=== PATIENT | male | born 1950 | race Caucasian/White ===

== ENCOUNTER 2016-06-15 22:27 | Inpatient (IN) | payer MEDICARE, OTHER ==
[~2016-06-15] VITALS: Ht 297.2 cm; Wt 112.8 kg
[~2016-06-15 22:27] MED LIST: AMIO200T33 PO; ASPI-264 PO; FER325T PO; FUR40T PO; GLIP-115 PO; LEVOPOW43 PO; METO-158 PO; POT20T PO; SIMV-8 PO; TIOTCAP INH; ZOLP10TA PO
[2016-06-15] MEDS ORDERED: DEXTROSE (50%) 50ML SYRG IV ONE (23:30)
[2016-06-15 23:52] LABS: Basophils # (auto) 0.1 uL; Basophils % (auto) 2.1 % (0.0-2.0); Eosinophils # (auto) 0.1 uL; Hematocrit 36.5 % (41.0-53.0); Hemoglobin 11.7 g/dL (13.5-17.5); Lymphocytes # (auto) 0.4 uL; Mean Corpuscular Hemoglobin 30.2 pg (28.0-32.0); Mean Corpuscular Hgb Conc. 32.2 g/dL (32.0-36.0); Mean Corpuscular Volume 93.9 fL (80.0-100.0); Mean Platelet Volume 7.3 fL (7.4-10.4); Monocytes # (auto) 0.4 uL; Monocytes % (auto) 5.8 % (0.0-12.0); Neutrophils # (auto) 5.3 uL; Neutrophils % (auto) 84.1 % (37.0-80.0); Platelet Count (auto) 204 10^3/uL (140-450); Red Cell Distribution Width 12.9 % (11.6-16.0); SUSPECT VIEW TRANSMISSION; White Blood Cell 6.3 10^3/uL (4.4-10.8)
[2016-06-16] VITALS (11 sets, daily range): BP systolic 121–150; BP diastolic 70–98
[2016-06-16 00:17] LABS: BUN/Creatinine Ratio 10.7; Bilirubin, Total 0.8 mg/dL (0.2-1.0); Calcium 8.1 mg/dL (8.5-10.1); Potassium 3.3 mmol/L (3.5-5.1); Total Protein 7.5 g/dL (6.4-8.2)
[2016-06-16 00:18] LABS: Albumin 3.3 g/dL (3.4-5.0)
[2016-06-16] MEDS ORDERED: DEXTROSE 10% 1,000 ML IV ONE (00:45)
[2016-06-16] MEDS ORDERED: ALBUTEROL SULF 2.5 MG/0.5ML(0.5%) NEB SOLN NEB ONE (01:45)
[2016-06-16] MEDS ORDERED: IPRATROPIUM BROM 0.5 MG/2.5ML INH SOL NEB ONE (01:45)
[2016-06-16] MEDS ORDERED: methylPREDNISolone SOD SUCC 125 MG/2 ML VL IV ONE (01:45)
[2016-06-16] MEDS ORDERED: DEXTROSE (50%) 50ML SYRG IV ONE ×3 (01:45→09:45)
[2016-06-16 03:18] LABS: Urine Bilirubin Negative (Negative); Urine Blood Negative /uL (Negative); Urine Color Yellow (Yellow); Urine Glucose Normal (Normal); Urine Ketone Negative (Negative); Urine Nitrite Negative (Negative); Urine RBC 1 /hpf (0 - 3); Urine Squamous Epithelial Cell FEW /hpf (<5); Urine Urobilinogen Normal (Negative); Urine pH 6.5 (5.0-8.0)
[2016-06-16] MEDS ORDERED: POTASSIUM CHL 20 Meq TABLET PO ONE (06:00)
[2016-06-16] MEDS ORDERED: NITROGLYCERIN 0.4 MG SL TAB SL PRN (07:45)
[2016-06-16] MEDS ORDERED: MORPHINE SULF INJ 2 MG/ML SYRINGE 1ML IV PRN (07:45)
[2016-06-16] MEDS ORDERED: LACTULOSE 20Gm/30ML SOLN PO PRN (07:45)
[2016-06-16] MEDS ORDERED: DEXTROSE (50%) 50ML SYRG IV PRN (07:45)
[2016-06-16] MEDS ORDERED: ZOLPIDEM TARTRATE 5 MG TAB PO PRN (07:45)
[2016-06-16] MEDS: DEXTROSE 10% 1,000 ML IV SCH ×2 (08:01→15:40)
[2016-06-16] MEDS: FUROSEMIDE 40 MG/4 ML VIAL IV SCH ×2 (08:05→18:00)
[2016-06-16] MEDS: FERROUS SULFATE 325 MG TAB PO SCH ×3 (08:06→18:00)
[2016-06-16] MEDS: LEVOTHYROXINE SODIUM 50 MCG TAB PO SCH (08:13)
[2016-06-16 08:57] LABS: Temperature: 21.4 C (20.0-25.0)
[2016-06-16] MEDS: IPRATROPIUM BROM 0.5 MG/2.5ML INH SOL NEB SCH ×4 (09:50→22:00)
[2016-06-16] MEDS: ALBUTEROL SULF 2.5 MG/0.5ML(0.5%) NEB SOLN NEB SCH ×4 (09:50→22:00)
[2016-06-16] MEDS: ASPirin 81 mg TAB PO SCH (10:00)
[2016-06-16] MEDS ORDERED: methylPREDNISolone SOD SUCC 125 MG/2 ML VL IV SCH (10:00)
[2016-06-16] MEDS: PANTOPRAZOLE SODIUM 40 MG/10 ML VIAL IV SCH (10:25)
[2016-06-16] MEDS: POTASSIUM CHL 20 Meq TABLET PO SCH (10:26)
[2016-06-16] MEDS: AMIODARONE HCL 200 MG TAB PO SCH (10:26)
[2016-06-16] MEDS: METOPROLOL TARTRATE 50 MG TAB PO SCH ×2 (10:27→21:48)
[2016-06-16] MEDS: ATORVASTATIN 20 MG TAB PO SCH (21:47)
[2016-06-16] MEDS: methylPREDNISolone SOD SUCC 125 MG/2 ML VL IV SCH (21:47)
[2016-06-17] MEDS: IPRATROPIUM BROM 0.5 MG/2.5ML INH SOL NEB SCH ×6 (02:00→22:20)
[2016-06-17] MEDS: ALBUTEROL SULF 2.5 MG/0.5ML(0.5%) NEB SOLN NEB SCH ×6 (02:00→22:21)
[2016-06-17] MEDS: DEXTROSE 10% 1,000 ML IV SCH ×3 (03:45→23:45)
[2016-06-17] MEDS: InsuLIN REG 1unit/0.01ml Soln (100units/ml) SC SCH ×7 (04:00→20:29)
[2016-06-17] MEDS: ACCU-CHEK COMFORT CURVE STRIP VI SCH ×6 (04:00→20:14)
[2016-06-17] MEDS: FUROSEMIDE 40 MG/4 ML VIAL IV SCH ×2 (05:36→18:09)
[2016-06-17 06:03] VITALS: BP 127/80
[2016-06-17 06:25] LABS: Basophils # (auto) 0 uL; Eosinophils # (auto) 0 uL; Hematocrit 38.1 % (41.0-53.0); Hemoglobin 12.1 g/dL (13.5-17.5); Lymphocytes # (auto) 0.2 uL; Lymphocytes % (auto) 3.3 % (10.0-50.0); Mean Corpuscular Hemoglobin 30.2 pg (28.0-32.0); Mean Corpuscular Hgb Conc. 31.9 g/dL (32.0-36.0); Mean Corpuscular Volume 94.7 fL (80.0-100.0); Mean Platelet Volume 8.3 fL (7.4-10.4); Monocytes # (auto) 0.1 uL; Monocytes % (auto) 1.5 % (0.0-12.0); Neutrophils # (auto) 7.2 uL; Neutrophils % (auto) 95.2 % (37.0-80.0); Platelet Count (auto) 235 10^3/uL (140-450); Red Cell Distribution Width 14.1 % (11.6-16.0); White Blood Cell 7.6 10^3/uL (4.4-10.8)
[2016-06-17 06:40] LABS: INR 1.12 (0.9-1.15); Prothrombin Time 11.5 sec (9.37-12.3)
[2016-06-17] MEDS: LEVOTHYROXINE SODIUM 50 MCG TAB PO SCH (06:40)
[2016-06-17 07:00] LABS: Albumin 3.4 g/dL (3.4-5.0); Bilirubin, Total 0.9 mg/dL (0.2-1.0); Potassium 4.2 mmol/L (3.5-5.1); Total Protein 7.6 g/dL (6.4-8.2)
[2016-06-17] MEDS: FERROUS SULFATE 325 MG TAB PO SCH ×3 (08:35→18:09)
[2016-06-17 09:21] VITALS: BP 165/74
[2016-06-17] MEDS: PANTOPRAZOLE SODIUM 40 MG/10 ML VIAL IV SCH (10:37)
[2016-06-17] MEDS: methylPREDNISolone SOD SUCC 125 MG/2 ML VL IV SCH ×2 (10:37→21:42)
[2016-06-17] MEDS: ASPirin 81 mg TAB PO SCH (10:37)
[2016-06-17] MEDS: POTASSIUM CHL 20 Meq TABLET PO SCH (10:37)
[2016-06-17] MEDS: AMIODARONE HCL 200 MG TAB PO SCH (10:38)
[2016-06-17] MEDS: METOPROLOL TARTRATE 50 MG TAB PO SCH ×2 (10:38→21:43)
[2016-06-17 12:49] VITALS: BP 123/81
[2016-06-17 17:39] VITALS: BP 114/75
[2016-06-17] MEDS: ATORVASTATIN 20 MG TAB PO SCH (21:43)
[2016-06-17 22:00] VITALS: BP 122/84
[2016-06-18] MEDS: ACCU-CHEK COMFORT CURVE STRIP VI SCH ×7 (00:03→23:59)
[2016-06-18] MEDS: InsuLIN REG 1unit/0.01ml Soln (100units/ml) SC SCH ×6 (00:06→20:28)
[2016-06-18] MEDS: ALBUTEROL SULF 2.5 MG/0.5ML(0.5%) NEB SOLN NEB SCH ×6 (02:30→22:10)
[2016-06-18] MEDS: IPRATROPIUM BROM 0.5 MG/2.5ML INH SOL NEB SCH ×6 (02:30→22:10)
[2016-06-18 05:00] VITALS: BP 120/80
[2016-06-18] MEDS: FUROSEMIDE 40 MG/4 ML VIAL IV SCH ×2 (06:22→17:49)
[2016-06-18] MEDS: LEVOTHYROXINE SODIUM 50 MCG TAB PO SCH (06:44)
[2016-06-18] MEDS: FERROUS SULFATE 325 MG TAB PO SCH ×3 (08:00→17:48)
[2016-06-18 09:00] VITALS: BP 120/81
[2016-06-18] MEDS: methylPREDNISolone SOD SUCC 125 MG/2 ML VL IV SCH ×2 (10:14→22:20)
[2016-06-18] MEDS: PANTOPRAZOLE SODIUM 40 MG/10 ML VIAL IV SCH (10:14)
[2016-06-18] MEDS: POTASSIUM CHL 20 Meq TABLET PO SCH (10:16)
[2016-06-18] MEDS: ASPirin 81 mg TAB PO SCH (10:16)
[2016-06-18] MEDS: metFORMIN HYDROCHLORIDE 500 MG TAB PO SCH (10:17)
[2016-06-18] MEDS: METOPROLOL TARTRATE 50 MG TAB PO SCH ×2 (10:17→22:20)
[2016-06-18] MEDS: AMIODARONE HCL 200 MG TAB PO SCH (10:17)
[2016-06-18] MEDS ORDERED: acetaZOLAMIDE SODIUM 500 MG VL IV ONE (11:00)
[2016-06-18 12:20] VITALS: BP 126/84
[2016-06-18 17:25] VITALS: BP 125/87
[2016-06-18 22:00] VITALS: BP 110/74
[2016-06-18] MEDS: ATORVASTATIN 20 MG TAB PO SCH (22:20)
[2016-06-19] MEDS: InsuLIN REG 1unit/0.01ml Soln (100units/ml) SC SCH ×7 (00:09→23:38)
[2016-06-19] MEDS: ALBUTEROL SULF 2.5 MG/0.5ML(0.5%) NEB SOLN NEB SCH ×6 (02:05→21:29)
[2016-06-19] MEDS: IPRATROPIUM BROM 0.5 MG/2.5ML INH SOL NEB SCH ×6 (02:05→21:28)
[2016-06-19] MEDS: ACCU-CHEK COMFORT CURVE STRIP VI SCH ×6 (04:02→23:32)
[2016-06-19 05:28] VITALS: BP 106/72
[2016-06-19] MEDS: FUROSEMIDE 40 MG/4 ML VIAL IV SCH ×2 (06:11→18:20)
[2016-06-19] MEDS: LEVOTHYROXINE SODIUM 50 MCG TAB PO SCH (06:12)
[2016-06-19 08:57] VITALS: BP 106/72
[2016-06-19 09:00] VITALS: BP 114/79
[2016-06-19] MEDS: metFORMIN HYDROCHLORIDE 500 MG TAB PO SCH (09:47)
[2016-06-19] MEDS: POTASSIUM CHL 20 Meq TABLET PO SCH (09:47)
[2016-06-19] MEDS: METOPROLOL TARTRATE 50 MG TAB PO SCH ×2 (09:48→21:39)
[2016-06-19] MEDS: FERROUS SULFATE 325 MG TAB PO SCH ×3 (09:49→18:19)
[2016-06-19] MEDS: PANTOPRAZOLE SODIUM 40 MG/10 ML VIAL IV SCH (09:49)
[2016-06-19] MEDS: ASPirin 81 mg TAB PO SCH (09:49)
[2016-06-19] MEDS: AMIODARONE HCL 200 MG TAB PO SCH (09:49)
[2016-06-19] MEDS ORDERED: methylPREDNISolone SOD SUCC 40 MG/ML VL IV SCH ×2 (10:00→12:00)
[2016-06-19 11:12] LABS: BUN/Creatinine Ratio 26.8; Calcium 9.2 mg/dL (8.5-10.1); Potassium 4.1 mmol/L (3.5-5.1)
[2016-06-19 13:00] VITALS: BP 116/74
[2016-06-19] MEDS: ACETYLCYSTEINE 10 %(100MG/ML) SOL 4ML NEB SCH ×3 (13:45→21:29)
[2016-06-19] MEDS: BUDESONIDE (INHALATION) 0.5 MG/2 ML NEB NEB SCH ×2 (13:45→21:29)
[2016-06-19] MEDS: methylPREDNISolone SOD SUCC 125 MG/2 ML VL IV SCH ×2 (16:19→21:25)
[2016-06-19 16:41] VITALS: BP 130/93
[2016-06-19] MEDS: ATORVASTATIN 20 MG TAB PO SCH (21:24)
[2016-06-20] MEDS: IPRATROPIUM BROM 0.5 MG/2.5ML INH SOL NEB SCH ×6 (02:14→22:06)
[2016-06-20] MEDS: ALBUTEROL SULF 2.5 MG/0.5ML(0.5%) NEB SOLN NEB SCH ×6 (02:14→22:06)
[2016-06-20] MEDS: ACETYLCYSTEINE 10 %(100MG/ML) SOL 4ML NEB SCH ×6 (02:14→22:06)
[2016-06-20] MEDS: ACCU-CHEK COMFORT CURVE STRIP VI SCH ×6 (04:02→23:21)
[2016-06-20] MEDS: InsuLIN REG 1unit/0.01ml Soln (100units/ml) SC SCH ×6 (04:06→23:22)
[2016-06-20] MEDS: methylPREDNISolone SOD SUCC 125 MG/2 ML VL IV SCH ×4 (04:51→21:42)
[2016-06-20 05:28] VITALS: BP 107/70
[2016-06-20] MEDS: FUROSEMIDE 40 MG/4 ML VIAL IV SCH ×2 (05:38→18:06)
[2016-06-20] MEDS: LEVOTHYROXINE SODIUM 50 MCG TAB PO SCH (06:09)
[2016-06-20] MEDS: FERROUS SULFATE 325 MG TAB PO SCH ×3 (08:42→17:45)
[2016-06-20 09:00] VITALS: BP 119/82
[2016-06-20] MEDS: BUDESONIDE (INHALATION) 0.5 MG/2 ML NEB NEB SCH ×2 (09:44→19:22)
[2016-06-20] MEDS: PANTOPRAZOLE SODIUM 40 MG/10 ML VIAL IV SCH (10:41)
[2016-06-20] MEDS: ASPirin 81 mg TAB PO SCH (10:43)
[2016-06-20] MEDS: AMIODARONE HCL 200 MG TAB PO SCH (10:44)
[2016-06-20] MEDS: metFORMIN HYDROCHLORIDE 500 MG TAB PO SCH (10:44)
[2016-06-20] MEDS: POTASSIUM CHL 20 Meq TABLET PO SCH ×2 (10:45→21:42)
[2016-06-20] MEDS: METOPROLOL TARTRATE 50 MG TAB PO SCH ×2 (10:46→21:43)
[2016-06-20 13:31] VITALS: BP 114/78
[2016-06-20 17:18] VITALS: BP 121/66
[2016-06-20] MEDS: SPIRONOLACTONE 25 MG TAB PO SCH (19:18)
[2016-06-20] MEDS: ATORVASTATIN 20 MG TAB PO SCH (21:42)
[2016-06-20 22:05] VITALS: BP 116/72
[2016-06-21] MEDS: ALBUTEROL SULF 2.5 MG/0.5ML(0.5%) NEB SOLN NEB SCH ×6 (02:35→22:24)
[2016-06-21] MEDS: IPRATROPIUM BROM 0.5 MG/2.5ML INH SOL NEB SCH ×6 (02:35→22:24)
[2016-06-21] MEDS: ACETYLCYSTEINE 10 %(100MG/ML) SOL 4ML NEB SCH ×6 (02:37→22:24)
[2016-06-21] MEDS: methylPREDNISolone SOD SUCC 125 MG/2 ML VL IV SCH ×4 (03:43→21:36)
[2016-06-21] MEDS: ACCU-CHEK COMFORT CURVE STRIP VI SCH ×6 (03:48→23:22)
[2016-06-21] MEDS: InsuLIN REG 1unit/0.01ml Soln (100units/ml) SC SCH ×6 (03:50→23:23)
[2016-06-21 05:12] VITALS: BP 116/76
[2016-06-21] MEDS: SPIRONOLACTONE 25 MG TAB PO SCH ×2 (05:42→18:09)
[2016-06-21] MEDS: FUROSEMIDE 40 MG/4 ML VIAL IV SCH ×2 (05:42→18:08)
[2016-06-21 06:38] LABS: BUN/Creatinine Ratio 28.7; Calcium 8.7 mg/dL (8.5-10.1); Potassium 4.7 mmol/L (3.5-5.1)
[2016-06-21] MEDS: LEVOTHYROXINE SODIUM 50 MCG TAB PO SCH (06:44)
[2016-06-21 08:50] VITALS: BP 122/79
[2016-06-21] MEDS: PANTOPRAZOLE SODIUM 40 MG/10 ML VIAL IV SCH (09:01)
[2016-06-21] MEDS: ASPirin 81 mg TAB PO SCH (09:04)
[2016-06-21] MEDS: FERROUS SULFATE 325 MG TAB PO SCH ×3 (09:04→18:09)
[2016-06-21] MEDS: POTASSIUM CHL 20 Meq TABLET PO SCH ×2 (09:05→21:37)
[2016-06-21] MEDS: metFORMIN HYDROCHLORIDE 500 MG TAB PO SCH (09:05)
[2016-06-21] MEDS: AMIODARONE HCL 200 MG TAB PO SCH (09:06)
[2016-06-21] MEDS: METOPROLOL TARTRATE 50 MG TAB PO SCH ×2 (09:06→21:38)
[2016-06-21] MEDS: BUDESONIDE (INHALATION) 0.5 MG/2 ML NEB NEB SCH ×2 (10:33→22:24)
[2016-06-21 12:44] VITALS: BP 122/80
[2016-06-21 17:01] VITALS: BP 123/81
[2016-06-21] MEDS: ATORVASTATIN 20 MG TAB PO SCH (21:37)
[2016-06-21 21:57] VITALS: BP 111/72
[2016-06-22] MEDS: ACETYLCYSTEINE 10 %(100MG/ML) SOL 4ML NEB SCH ×6 (02:17→22:31)
[2016-06-22] MEDS: IPRATROPIUM BROM 0.5 MG/2.5ML INH SOL NEB SCH ×6 (02:17→22:00)
[2016-06-22] MEDS: ALBUTEROL SULF 2.5 MG/0.5ML(0.5%) NEB SOLN NEB SCH ×6 (02:17→22:31)
[2016-06-22] MEDS: InsuLIN REG 1unit/0.01ml Soln (100units/ml) SC SCH ×2 (03:31→08:17)
[2016-06-22] MEDS: methylPREDNISolone SOD SUCC 125 MG/2 ML VL IV SCH ×2 (03:31→09:51)
[2016-06-22] MEDS: ACCU-CHEK COMFORT CURVE STRIP VI SCH ×2 (03:31→08:00)
[2016-06-22 05:17] VITALS: BP 107/78
[2016-06-22] MEDS: FUROSEMIDE 40 MG/4 ML VIAL IV SCH ×2 (05:39→17:16)
[2016-06-22] MEDS: SPIRONOLACTONE 25 MG TAB PO SCH ×2 (05:39→17:15)
[2016-06-22] MEDS: LEVOTHYROXINE SODIUM 50 MCG TAB PO SCH (06:34)
[2016-06-22] MEDS: BUDESONIDE (INHALATION) 0.5 MG/2 ML NEB NEB SCH ×2 (06:36→20:38)
[2016-06-22] MEDS: FERROUS SULFATE 325 MG TAB PO SCH ×3 (07:57→17:15)
[2016-06-22 09:00] VITALS: BP 113/78
[2016-06-22] MEDS: ASPirin 81 mg TAB PO SCH (09:50)
[2016-06-22] MEDS: POTASSIUM CHL 20 Meq TABLET PO SCH ×2 (09:50→21:58)
[2016-06-22] MEDS: PANTOPRAZOLE SODIUM 40 MG/10 ML VIAL IV SCH (09:51)
[2016-06-22] MEDS: AMIODARONE HCL 200 MG TAB PO SCH (09:51)
[2016-06-22] MEDS: metFORMIN HYDROCHLORIDE 500 MG TAB PO SCH (09:51)
[2016-06-22] MEDS: METOPROLOL TARTRATE 50 MG TAB PO SCH ×2 (09:51→21:58)
[2016-06-22] MEDS ORDERED: METOLAZONE 5 MG TAB PO ONE (10:30)
[2016-06-22 13:00] VITALS: BP 117/71
[2016-06-22 16:41] VITALS: BP 132/86
[2016-06-22 20:59] VITALS: BP 132/86
[2016-06-22 21:58] VITALS: BP 129/81
[2016-06-22] MEDS: ATORVASTATIN 20 MG TAB PO SCH (21:58)
[2016-06-23] MEDS: ALBUTEROL SULF 2.5 MG/0.5ML(0.5%) NEB SOLN NEB SCH ×6 (02:28→22:19)
[2016-06-23] MEDS: IPRATROPIUM BROM 0.5 MG/2.5ML INH SOL NEB SCH ×6 (02:28→22:19)
[2016-06-23] MEDS: ACETYLCYSTEINE 10 %(100MG/ML) SOL 4ML NEB SCH ×3 (02:29→09:55)
[2016-06-23 04:53] VITALS: BP 104/71
[2016-06-23] MEDS: SPIRONOLACTONE 25 MG TAB PO SCH (06:05)
[2016-06-23] MEDS: FUROSEMIDE 40 MG/4 ML VIAL IV SCH ×2 (06:05→17:21)
[2016-06-23] MEDS: LEVOTHYROXINE SODIUM 50 MCG TAB PO SCH ×2 (06:35→09:49)
[2016-06-23 06:50] LABS: BUN/Creatinine Ratio 39.6; Calcium 9.4 mg/dL (8.5-10.1); Potassium 4.1 mmol/L (3.5-5.1)
[2016-06-23 09:13] VITALS: BP 125/69
[2016-06-23] MEDS: AMIODARONE HCL 200 MG TAB PO SCH (09:47)
[2016-06-23] MEDS: METOPROLOL TARTRATE 50 MG TAB PO SCH ×2 (09:48→21:42)
[2016-06-23] MEDS: METOLAZONE 5 MG TAB PO SCH (09:48)
[2016-06-23] MEDS: FERROUS SULFATE 325 MG TAB PO SCH ×3 (09:48→17:22)
[2016-06-23] MEDS: POTASSIUM CHL 20 Meq TABLET PO SCH ×2 (09:48→21:42)
[2016-06-23] MEDS: ASPirin 81 mg TAB PO SCH (09:48)
[2016-06-23] MEDS: BUDESONIDE (INHALATION) 0.5 MG/2 ML NEB NEB SCH ×2 (09:55→22:00)
[2016-06-23] MEDS ORDERED: ZOLPIDEM TARTRATE 5 MG TAB PO PRN (10:15)
[2016-06-23] MEDS ORDERED: MORPHINE SULF INJ 2 MG/ML SYRINGE 1ML IV PRN (10:15)
[2016-06-23 13:43] VITALS: BP 112/74
[2016-06-23 17:02] VITALS: BP 123/83
[2016-06-23] MEDS: ATORVASTATIN 20 MG TAB PO SCH (21:41)
[2016-06-23 22:00] VITALS: BP 132/81
[2016-06-24] MEDS: IPRATROPIUM BROM 0.5 MG/2.5ML INH SOL NEB SCH ×3 (02:34→10:20)
[2016-06-24] MEDS: ALBUTEROL SULF 2.5 MG/0.5ML(0.5%) NEB SOLN NEB SCH ×3 (02:34→10:20)
[2016-06-24 05:00] VITALS: BP 112/70
[2016-06-24] MEDS: FUROSEMIDE 40 MG/4 ML VIAL IV SCH (06:15)
[2016-06-24 06:25] LABS: BUN/Creatinine Ratio 40.7; Calcium 9.5 mg/dL (8.5-10.1); Potassium 3.9 mmol/L (3.5-5.1)
[2016-06-24] MEDS: FERROUS SULFATE 325 MG TAB PO SCH (08:00)
[2016-06-24 09:00] VITALS: BP 118/73
[2016-06-24] MEDS ORDERED: SPIRONOLACTONE 25 MG TAB PO SCH (10:00)
[2016-06-24] MEDS: AMIODARONE HCL 200 MG TAB PO SCH (10:08)
[2016-06-24] MEDS: ASPirin 81 mg TAB PO SCH (10:08)
[2016-06-24] MEDS: METOPROLOL TARTRATE 50 MG TAB PO SCH (10:09)
[2016-06-24] MEDS: METOLAZONE 5 MG TAB PO SCH (10:09)
[2016-06-24] MEDS: POTASSIUM CHL 20 Meq TABLET PO SCH (10:09)
[2016-06-24 10:18] VITALS: BP 118/73
== END 2016-06-24 12:30 | disposition home or self-care (01) | DRG 637 ==
LOC: ER 22:27 → TELE 22:28 → ICU WEST 06-16 09:16 → TELE-CENTR 06-16 19:45
PROVIDERS: ADMIT Family Medicine; ATTEND Internal Medicine
DX: E11.649 Type 2 diabetes mellitus with hypoglycemia without coma (principal); I50.43 Acute on chronic combined systolic (congestive) and diastolic (congestive) heart failure; I13.0 Hypertensive heart and chronic kidney disease with heart failure and stage 1 through stage 4 chronic kidney disease, or unspecified chronic kidney disease; J44.1 Chronic obstructive pulmonary disease with (acute) exacerbation; E44.1 Mild protein-calorie malnutrition; E87.3 Alkalosis; J96.10 Chronic respiratory failure, unspecified whether with hypoxia or hypercapnia; Z68.1 Body mass index [BMI] 19.9 or less, adult; D64.9 Anemia, unspecified; E03.9 Hypothyroidism, unspecified; N18.3 Chronic kidney disease, stage 3 (moderate); I25.10 Atherosclerotic heart disease of native coronary artery without angina pectoris; E66.9 Obesity, unspecified; I48.91 Unspecified atrial fibrillation; Z82.49 Family history of ischemic heart disease and other diseases of the circulatory system; Z91.19 Patient's noncompliance with other medical treatment and regimen; Z95.1 Presence of aortocoronary bypass graft; Z95.5 Presence of coronary angioplasty implant and graft; I25.2 Old myocardial infarction; Z99.81 Dependence on supplemental oxygen; Z88.8 Allergy status to other drugs, medicaments and biological substances; Z79.899 Other long term (current) drug therapy; Z79.82 Long term (current) use of aspirin
CPT/HCPCS: 36415; 36600; 71010; 80048; 80053; 80061; 81001; 82805; 82947; 82962; 83036; 83735; 83880; 84133; 84443; 84484; 85025; 85049; 85379; 85610; 87081; 87493; 93005; 93306; 94640; 96374; 96375; 96376; 97001; 97110; 97116; 97530; C9113; G0434; J1815

== ENCOUNTER 2016-12-11 19:16 | Emergency (ER) | payer MEDICARE, OTHER ==
[~2016-12-11] VITALS: Ht 182.9 cm; Wt 86.2 kg
[~2016-12-11 19:16] MED LIST changes: +ALBU1AER4 IN; -AMIO200T33 PO; +APIX5TAB PO; -ASPI-264 PO; +DIG0125T PO; -FER325T PO; +NITR400A5 TL; +OMEP20CA74 PO; -POT20T PO; +RAMI5CAP40 PO; -ZOLP10TA PO
[2016-12-11 20:22] LABS: CONDITION Y; Hematocrit 44.4 % (41.0-53.0); Hemoglobin 15.3 g/dL (13.5-17.5); Mean Corpuscular Hgb Conc. 34.5 g/dL (32.0-36.0); Mean Corpuscular Volume 87.2 fL (80.0-100.0); Mean Platelet Volume 8.3 fL (7.4-10.4); Platelet Count (auto) 451 10^3/uL (140-450); Red Cell Distribution Width 14.3 % (11.6-16.0); SUSPECT SEE PRINTOUT; White Blood Cell 27.8 10^3/uL (4.4-10.8)
[2016-12-11 20:27] LABS: Metamyelocytes % 0; Myelocytes % 0; Promyelocytes % 0; Reactive Lymphocytes 0
[2016-12-11 20:43] LABS: Albumin 2.8 g/dL (3.4-5.0); Anion Gap 10 (5-15); Blood Urea Nitrogen 18 mg/dL (7-18); Calcium 8.3 mg/dL (8.5-10.1); Carbon Dioxide 24 mmol/L (21-32); Chloride 94 mmol/L (98-107); Glucose 199 mg/dL (74-106); Magnesium 1.7 mg/dL (1.6-2.6); Potassium 4.1 mmol/L (3.5-5.1); Sodium 128 mmol/L (136-145)
[2016-12-11 20:45] LABS: Aspartate Aminotransferase 92 U/L (15-37); BUN/Creatinine Ratio 11.5; GFR African American 57 mL/min; GFR Non-African American 48 mL/min
[2016-12-11 20:51] LABS: Alkaline Phosphatase 399 U/L (45-117); Bilirubin, Total 7.3 mg/dL (0.2-1.0); Total Protein 8.5 g/dL (6.4-8.2)
[2016-12-11 21:36] LABS: Hypersegmented Neutrophils Present; Platelet Estimate Increased
[2016-12-12] MEDS ORDERED: SODIUM CHLORIDE 0.9% 1,000 ML IV ONE ×2 (00:15→06:00)
[2016-12-12 00:54] LABS: Amylase 45 U/L (25-115)
[2016-12-12 01:04] LABS: Urine Squamous Epithelial Cell None Seen /hpf (<5)
[2016-12-12 01:08] LABS: Allen Test Modified; Base Excess 3.4 mmol/L (-2.0-2.0); Blood COHb 1.2 % (0.5-1.5); Blood MetHb 0.3 % (0.0-1.5); HCO3 26.1 mmol/L (22-26.0); HHb 3.9 % (0.0-5.0); MODE NASAL CANNULA; O2Hb 94.6 % (94.0-97.0); PCO2 34.2 mmHg (35.0-45.0); PCO2(T) 34.2 mmHg (35.0-45.0); PO2 84.2 mmHg (80.0-100.0); PO2(T) 84.2 mmHg (80.0-100.0); Sample Type Arterial; pH 7.501 (7.350-7.450)
[2016-12-12 01:10] LABS: Temperature: 22.7 C (20.0-25.0)
[2016-12-12 01:20] LABS: Urine Bilirubin 3+ (Negative); Urine Color Amber (Yellow); Urine Glucose Trace mg/dL (Normal); Urine Urobilinogen >12.0 mg/dL (Negative)
[2016-12-12 01:21] LABS: Urine Blood 1+ /uL (Negative); Urine Granular Cast MOD /lpf (0); Urine Hyaline Cast MOD /lpf (0 - 2); Urine Ketone Negative (Negative); Urine Nitrite Negative (Negative); Urine RBC 4 /hpf (0 - 3); Urine WBC Clumps PRESENT /hpf (None Seen); Urine pH 5.5 (5.0-8.0)
[2016-12-12 01:22] LABS: Cellular Cast MANY /hpf (0)
[2016-12-12] MEDS ORDERED: PIPERACILLIN-TAZOB 3.375GM 100 ML IV ONE (03:00)
[2016-12-12] MEDS ORDERED: cefTRIAXone 1GM/50ML D5W 50 ML IV ONE (03:00)
[2016-12-12 04:28] LABS: INR 1.05 (0.9-1.15); Partial Thromboplastin Time 30.6 sec (22.64-33.71); Prothrombin Time 11.4 sec (9.37-12.3)
[2016-12-12 10:43] VITALS: BP 109/75
== END 2016-12-12 11:09 | disposition short-term general hospital (02) ==
LOC: EDBD 19:16 → ER 19:19
DX: A41.9 Sepsis, unspecified organism (principal); R17 Unspecified jaundice; R41.82 Altered mental status, unspecified; N39.0 Urinary tract infection, site not specified; E11.65 Type 2 diabetes mellitus with hyperglycemia; K80.50 Calculus of bile duct without cholangitis or cholecystitis without obstruction; I11.0 Hypertensive heart disease with heart failure; I50.9 Heart failure, unspecified; Z95.1 Presence of aortocoronary bypass graft; J44.9 Chronic obstructive pulmonary disease, unspecified; I48.91 Unspecified atrial fibrillation; I25.10 Atherosclerotic heart disease of native coronary artery without angina pectoris; E78.00 Pure hypercholesterolemia, unspecified; I11.9 Hypertensive heart disease without heart failure; Z95.5 Presence of coronary angioplasty implant and graft; E07.9 Disorder of thyroid, unspecified; Z79.01 Long term (current) use of anticoagulants; Z90.49 Acquired absence of other specified parts of digestive tract
CPT/HCPCS: 36415; 36600; 71010; 74176; 80053; 80307; 80320; 81001; 82140; 82150; 82805; 83605; 83690; 83735; 83880; 84484; 85007; 85027; 85610; 85730; 87040; 93005; 96361; 96365; 96366; 96368; 99285; J0696; J2543; J7030

== ENCOUNTER → 2020-12-08 | Outpatient (CLI) | payer MEDICARE, OTHER ==
[~2020-12-08] MED LIST changes: -FUR40T PO; -GLIP-115 PO; +GLIP5TAB12 PO; -RAMI5CAP40 PO; +SACU1TAB PO
== END | disposition home or self-care (01) ==
LOC: XYW 08:43
PROVIDERS: ATTEND Nurse Practitioner Acute Care
DX: I08.3 Combined rheumatic disorders of mitral, aortic and tricuspid valves (principal); I31.3 Pericardial effusion (noninflammatory); I25.10 Atherosclerotic heart disease of native coronary artery without angina pectoris; I11.9 Hypertensive heart disease without heart failure
CPT/HCPCS: 93306

== ENCOUNTER → 2021-08-01 | Outpatient (CLI) | payer MEDICARE, OTHER ==
[~2021-08-01] MED LIST changes: +EMPA1TAB3 PO; +METO25TA5 PO
[2021-08-01 08:20] VITALS: BP 148/75
[2021-08-01 08:40] VITALS: BP 134/69
[2021-08-01 11:32] LABS: Basophils # (auto) 0.1 10 ^3/uL (0-0.2); Basophils % (auto) 0.7 % (0.0-2.0); Eosinophils # (auto) 0.1 10 ^3/uL (0-0.8); Eosinophils % (auto) 1.1 % (0.0-7.0); Hemoglobin 15.9 g/dL (13.5-17.5); Lymphocytes # (auto) 1.8 10 ^3/uL (0.4-5.4); Mean Corpuscular Hemoglobin 29.6 pg (28.0-32.0); Mean Corpuscular Hgb Conc. 33.2 g/dL (32.0-36.0); Mean Corpuscular Volume 89.4 fL (80.0-100.0); Monocytes # (auto) 0.4 10 ^3/uL (0-1.3); Monocytes % (auto) 5.2 % (0.0-12.0); Neutrophils # (auto) 6.1 10 ^3/uL (1.6-8.6); Nucleated Red Blood Cells % 0.1 %; Red Blood Cells 5.37 10^6/uL (4.5-5.90); Red Cell Distribution Width 13.9 % (11.8-14.3); White Blood Cell 8.5 10^3/uL (4.4-10.8)
[2021-08-01 11:43] LABS: INR 1.05 (0.9-1.15); Partial Thromboplastin Time 33.3 sec (23.6-33.0)
[2021-08-01 13:42] LABS: BUN/Creatinine Ratio 10.9; Calcium 9.1 mg/dL (8.5-10.1); Potassium 4.4 mmol/L (3.5-5.1)
== END | disposition home or self-care (01) ==
LOC: Rad HDHVI 07:59
PROVIDERS: ATTEND Internal Medicine Cardiovascular Disease
DX: Z01.818 Encounter for other preprocedural examination (principal); I11.0 Hypertensive heart disease with heart failure; I50.9 Heart failure, unspecified; I25.5 Ischemic cardiomyopathy; M25.78 Osteophyte, vertebrae; M47.814 Spondylosis without myelopathy or radiculopathy, thoracic region; R94.31 Abnormal electrocardiogram [ECG] [EKG]
CPT/HCPCS: 36415; 71046; 80048; 85025; 85610; 85730; 93005; G0463

== ENCOUNTER 2021-08-03 06:33 | Day surgery (SDC) | payer MEDICARE, OTHER ==
[~2021-08-03] VITALS: Ht 175.3 cm; Wt 98.9 kg
[2021-08-03] MEDS ORDERED: VANCOMYCIN 1GM/250ML 250 ML IV ONE (09:50)
[2021-08-03] MEDS ORDERED: VANCOMYCIN HCL 1000 MG VL ONE (09:55)
[2021-08-03] MEDS ORDERED: MIDAZOLAM HCL 2MG/2ML 2ml VIAL (1mg/ml) ONE (09:55)
[2021-08-03] MEDS ORDERED: fentaNYL CITRATE 100 MCG/2 ML VL ONE (09:55)
[2021-08-03] MEDS ORDERED: IODIXANOL 320MG/ML 100ML BTL IV ONE (10:37)
== END 2021-08-03 14:06 | disposition home or self-care (01) ==
LOC: CATH 06:33
PROVIDERS: ATTEND Internal Medicine Cardiovascular Disease
DX: I11.0 Hypertensive heart disease with heart failure (principal); I50.21 Acute systolic (congestive) heart failure; I49.5 Sick sinus syndrome; E11.40 Type 2 diabetes mellitus with diabetic neuropathy, unspecified; E11.21 Type 2 diabetes mellitus with diabetic nephropathy; I25.2 Old myocardial infarction; J44.9 Chronic obstructive pulmonary disease, unspecified; E78.5 Hyperlipidemia, unspecified; I25.10 Atherosclerotic heart disease of native coronary artery without angina pectoris; Z82.49 Family history of ischemic heart disease and other diseases of the circulatory system; Z87.891 Personal history of nicotine dependence; Z79.02 Long term (current) use of antithrombotics/antiplatelets; Z20.822 Contact with and (suspected) exposure to COVID-19; Z80.8 Family history of malignant neoplasm of other organs or systems; Z83.3 Family history of diabetes mellitus; Z83.79 Family history of other diseases of the digestive system; Z83.6 Family history of other diseases of the respiratory system
CPT/HCPCS: 33225; 33249; 71045; 93005; C1769; C1882; C1887; C1892; C1895; C1898; J2250; J3010; J3370; J7030; Q9967; U0003; 99152; 99153

== ENCOUNTER → 2021-08-04 | Outpatient (CLI) | payer MEDICARE, OTHER | END | disposition home or self-care (01) | LOC: Rad HDHVI 14:18 | PROVIDERS: ATTEND Internal Medicine Cardiovascular Disease | DX: J84.9 Interstitial pulmonary disease, unspecified (principal); Z95.0 Presence of cardiac pacemaker | CPT/HCPCS: 71046 ==

== ENCOUNTER → 2022-02-19 | Outpatient (CLI) | payer MEDICARE, OTHER ==
[~2022-02-19] VITALS: Ht 175.3 cm; Wt 97.5 kg
== END | disposition home or self-care (01) ==
LOC: Rad HDHVI 12:45
PROVIDERS: ATTEND Internal Medicine Cardiovascular Disease
DX: R00.2 Palpitations (principal); I11.0 Hypertensive heart disease with heart failure; I50.23 Acute on chronic systolic (congestive) heart failure; I42.0 Dilated cardiomyopathy; I25.5 Ischemic cardiomyopathy; I27.21 Secondary pulmonary arterial hypertension; R60.9 Edema, unspecified; I48.0 Paroxysmal atrial fibrillation; E78.5 Hyperlipidemia, unspecified; E11.9 Type 2 diabetes mellitus without complications; Z95.810 Presence of automatic (implantable) cardiac defibrillator; Z82.49 Family history of ischemic heart disease and other diseases of the circulatory system
CPT/HCPCS: 78472; 96374; 96375; A9505

== ENCOUNTER → 2022-07-25 | Outpatient (CLI) | payer MEDICARE, OTHER | END | disposition home or self-care (01) | LOC: Rad HDHVI 13:46 | PROVIDERS: ATTEND Internal Medicine Cardiovascular Disease | DX: I08.8 Other rheumatic multiple valve diseases (principal); I27.21 Secondary pulmonary arterial hypertension; I10 Essential (primary) hypertension; R06.02 Shortness of breath | CPT/HCPCS: 93306 ==

== ENCOUNTER → 2023-03-14 | Outpatient (CLI) | payer MEDICARE, OTHER ==
[~2023-03-14] MED LIST changes: -SIMV-8 PO; +SIMV20TA20 PO
[2023-03-14 14:00] LABS: Base Excess 1.6 mmol/L (-2.0-2.0)
== END | disposition home or self-care (01) ==
LOC: RT 12:29
PROVIDERS: ATTEND Internal Medicine
DX: J96.11 Chronic respiratory failure with hypoxia (principal); I10 Essential (primary) hypertension; Z99.81 Dependence on supplemental oxygen
CPT/HCPCS: 36600; 82805

== ENCOUNTER → 2023-04-23 | Emergency (ER) | payer OTHER ==
[~2023-04-23] VITALS: Ht 177.8 cm; Wt 90.9 kg
[~2023-04-23] MED LIST changes: +DOPamine 1600MCG/ML D5W 250 ML IV SCH; +EPINEPHrine HCL 1 MG/10 ML SYRG ONE; +EPINEPHrine HCL 250 ML IV ONE; +MIDAZOLAM DRIP 50 mg/50mL 50 ML IV ONE; +SODIUM BICARBONATE 8.4% INJ 50ML SYRINGE ONE
[2023-04-23 18:11] VITALS: BP 0/0; PULSE 0; RESP 0; TEMP 96; O2SAT 0
== END ==
LOC: EDUNIT# 16:20 → ER 16:21 → EDBD 16:21
DX: I46.9 Cardiac arrest, cause unspecified (principal); E11.9 Type 2 diabetes mellitus without complications; I10 Essential (primary) hypertension; Z98.61 Coronary angioplasty status; Z90.49 Acquired absence of other specified parts of digestive tract; Z95.1 Presence of aortocoronary bypass graft; Z79.899 Other long term (current) drug therapy; Z88.8 Allergy status to other drugs, medicaments and biological substances
CPT/HCPCS: 36556; 92950; 99285; J0171; J2250